=== PATIENT | male | born 1995 | race Caucasian/White ===

== ENCOUNTER 2017-12-10 22:48 | Emergency (ER) | payer OTHER, SELFPAY ==
--- NOTE | 2017-12-11 00:32 | ER ---
Nurse's Notes [facility] Name: Livan Campa Age: 22 yrs Sex: Male : 1995 Arrival Date: 12/10/2017 Time: 22:53 Bed 11 Private MD: Diagnosis: Laceration without foreign body of right index finger without damage to nail Presentation: 12/10 23:22 Presenting complaint: Patient states: I CUT MY FINGER WHILE I WAS SCALING FISH. bp Transition of care: patient was not received from another setting of care. Onset of symptoms was December 09, 2017 at 21:00. Risk Assessment: Do you want to hurt yourself or someone else? Patient reports no desire to harm self or others. Initial Sepsis Screen: Does the patient meet any 2 criteria? No. Patient's initial sepsis screen is negative. Does the patient have a suspected source of infection? No. Patient's initial sepsis screen is negative. Note NO ACTIVE BLEEDING, INJURY >24 HR OLD. Care prior to arrival: None. 23:22 Method Of Arrival: Ambulatory bp 23:22 Acuity: OTIS 4 bp Triage Assessment: 23:24 General: Appears in no apparent distress. comfortable, Behavior is calm, cooperative, bp appropriate for age. Pain: Denies pain. Musculoskeletal: Circulation, motion, and sensation intact. Range of motion: intact in all extremities. Injury Description: Laceration sustained to palmar aspect of proxima; phalanx of right index finger is 0.5 to 2.5 cm long, not bleeding, was sustained 1 day ago. Historical: - Allergies: 23:24 No Known Allergies; bp - Home Meds: 23:24 None [Active]; bp - PMHx: 23:24 None; bp - Immunization history:: Adult Immunizations up to date, Last tetanus immunization: unknown. - Social history:: Smoking status: Patient/guardian denies using tobacco, Patient uses alcohol, occasionally. - Ebola Screening: : Patient negative for fever greater than or equal to 101.5 degrees Fahrenheit, and additional compatible Ebola Virus Disease symptoms Patient denies exposure to infectious person Patient denies travel to an Ebola-affected area in the 21 days before illness onset No symptoms or risks identified at this time. Screenin/01 00:03 Abuse screen: Denies threats or abuse. Denies injuries from another. Nutritional bp screening: No deficits noted. Tuberculosis screening: No symptoms or risk factors identified. Fall Risk None identified. Assessment: 00:02 Reassessment: NO ACTIVE BLEEDING. APPROXIMATELY 2CM LAC NOTED TO PALMAR SURFACE OF bp RIGHT 2ND FINGER. INJURY OCCURRED >24HR AGO. 00:56 Reassessment: PT D/C HOME AMBULATORY WITH FAMILY, DX WITH FINGER LACERATION WITHOUT bp FOREIGN BODY. Vital Signs: 12/10 23:24 BP 100 / 52; Pulse 65; Resp 14; Temp 98.4; Pulse Ox 100% ; Weight 86.18 kg; Height 5 bp ft. 10 in. (177.80 cm); 23:24 Body Mass Index 27.26 (86.18 kg, 177.80 cm) bp ED Course: 22:53 Patient arrived in ED. al2 23:24 Triage completed. bp 23:24 Arm band placed on. bp 23:35 Josseline Arguello NP is PHCP. rh1 23:35 Slim Latif MD is Attending Physician. rh1 23:51 Good Rodriguez, JESSY is Primary Nurse. bp 12/11 00:03 Patient has correct armband on for positive identification. Bed in low position. Call bp light in reach. Adult w/ patient. 00:54 No provider procedures requiring assistance completed. intact. 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 Exp: bp 02/10/2020. Lot #: [id number]. } Route: IM; Site: right deltoid; 00:46 Follow up: Response: Medication administered at discharge. bp 00:46 Drug: Doxycycline 100 mg Route: PO; bp 00:47 Follow up: Response: Medication administered at discharge. bp Outcome: 00:31 Discharge ordered by . rh1 00:54 Discharged to home ambulatory, with family. bp 00:54 Condition: stable 00:54 Discharge instructions given to patient, Instructed on discharge instructions, follow up and referral plans. medication usage, wound care, Demonstrated understanding of instructions, follow-up care, medications, wound care, Prescriptions given X 1. 00:58 Patient left the ED. bp Signatures: Josseline Arguello NP DREDGE ENGINEER rh1 Good Rodriguez, RN RN Nettie Rowland Corrections: (The following items were deleted from the chart) 00:02 00:01 Reassessment: bp bp
--- NOTE | 2017-12-11 00:32 | EDPHYS ---
Physician Documentation [facility] Name: Livan Campa Age: 22 yrs Sex: Male : 1995 Arrival Date: 12/10/2017 Time: 22:53 Bed 11 Private MD: ED Physician Slim Latif HPI: 12/10 23:53 This 22 yrs old Male presents to ER via Ambulatory with complaints of Finger rh1 Injury. 23:53 The patient or guardian reports a laceration, dirty, clean, 1.5 cm(s). The complaints rh1 affect the palmar aspect of middle phalanx of right index finger and palmar aspect of proxima; phalanx of right index finger. Context: [place]. Onset: The symptoms/episode began/occurred yesterday. Modifying factors: The symptoms are alleviated by nothing, the symptoms are aggravated by movement. Associated signs and symptoms: Pertinent negatives: cyanosis distally, decreased sensation distally, numbness distally, tingling distally. Severity of symptoms: At their worst the symptoms were moderate, in the emergency department the symptoms are unchanged. The patient has not experienced similar symptoms in the past. The patient has not recently seen a physician. Pt. reports he was cleaning a fish yesterday and hand slipped, cutting right palmar index finger. He has no pain at site, denies any continued bleeding, no paresthesias.. Historical: - Allergies: 23:24 No Known Allergies; bp - Home Meds: 23:24 None [Active]; bp - PMHx: 23:24 None; bp - Immunization history:: Adult Immunizations up to date, Last tetanus immunization: unknown. - Social history:: Smoking status: Patient/guardian denies using tobacco, Patient uses alcohol, occasionally. - Ebola Screening: : Patient negative for fever greater than or equal to 101.5 degrees Fahrenheit, and additional compatible Ebola Virus Disease symptoms Patient denies exposure to infectious person Patient denies travel to an Ebola-affected area in the 21 days before illness onset No symptoms or risks identified at this time. ROS: 23:53 Constitutional: Negative for fever rh1 23:53 MS/extremity: Positive for laceration, swelling, Negative for decreased range of motion, paresthesias. 23:53 Skin: Positive for laceration(s). 23:53 Neuro: Negative for numbness, tingling. 23:53 All other systems are negative. Exam: 23:53 Constitutional: This is a well developed, well nourished patient who is awake, alert, rh1 and in no acute distress. Head/Face: Normocephalic, atraumatic. Cardiovascular: Regular rate and rhythm with a normal S1 and S2. No gallops, murmurs, or rubs. No JVD. No pulse deficits. Respiratory: Lungs have equal breath sounds bilaterally, clear to auscultation. No rales, rhonchi or wheezes noted. No increased work of breathing. Abdomen/GI: Soft, non-tender, with normal bowel sounds. No distension. No guarding or rebound. No evidence of tenderness throughout. 23:53 Musculoskeletal/extremity: Extremities: grossly normal except: noted in the palmar aspect of middle phalanx of right index finger: laceration, swelling, There is no evidence of decreased ROM, deformity, pain, ROM: full active range of motion, in the right hand, left hand, right arm and left arm, full passive range of motion, in the right hand, left hand, right arm and left arm, full flexion of right index finger intact, 5/5 against resistence, Pulses: noted to be 2+ in the right radial artery and left radial artery, Perfusion: the extremity is pink, warm, with brisk capillary refill, right index finger, Sensation intact. 23:53 Skin: injury, laceration(s), the wound is approximately 1.5 cm(s), with a depth of .5 cm(s), of the palmar aspect of middle phalanx of right index finger, that can be described as contaminated, linear, without bleeding. 23:53 Neuro: Orientation: is normal, to person, place \T\ time. Mentation: is normal, lucid, able to follow commands, Motor: is normal, moves all fours, strength is 5/5 in all extremities, Sensation: is normal, numbness, is not appreciated, tingling, is not appreciated, Gait: is steady, at a normal pace, without difficulty. Vital Signs: 23:24 BP 100 / 52; Pulse 65; Resp 14; Temp 98.4; Pulse Ox 100% ; Weight 86.18 kg; Height 5 bp ft. 10 in. (177.80 cm); 23:24 Body Mass Index 27.26 (86.18 kg, 177.80 cm) bp MDM: 23:53 Patient medically screened. [facility] 12/11 00:30 Data reviewed: vital signs, nurses notes, and as a result, I will discharge patient. rh1 Data interpreted: Pulse oximetry: on room air is 100 %. Interpretation: normal. Counseling: I had a detailed discussion with the patient and/or guardian regarding: the historical points, exam findings, and any diagnostic results supporting the discharge/admit diagnosis, the need for outpatient follow up, a family practitioner, to return to the emergency department if symptoms worsen or persist or if there are any questions or concerns that arise at home. Special discussion: I discussed in detail with the patient the higher chance of wound infection based on his presenting history. we discussed importance of keeping wound clean while it heals, and monitor closely for signs of infection. 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 Exp: 02/10/2020. Lot #: [id number]. } Route: IM; Site: right deltoid; 00:46 Follow up: Response: Medication administered at discharge. bp 00:46 Drug: Doxycycline 100 mg Route: PO; bp 00:47 Follow up: Response: Medication administered at discharge. bp Disposition: 12/11/17 00:31 Discharged to Home. Impression: Laceration without foreign body of right index finger without damage to nail. - Condition is Stable. - Discharge Instructions: Delayed Wound Closure, Laceration Care, Adult. - Prescriptions for Doxycycline Hyclate 100 mg Oral Tablet - take 1 tablet by ORAL route once daily; 10 tablet. - Medication Reconciliation Form, Thank You Letter, Antibiotic Education, Prescription Opioid Use form. - Follow up: Private Physician; When: 1 - 2 days; Reason: Recheck today's complaints, Continuance of care, Re-evaluation by your physician. Follow up: Emergency Department; When: As needed; Reason: Fever > 102 F, If symptoms return, Trouble breathing, Worsening of condition. - Problem is new. - Symptoms have improved. Addendum: 12/12/2017 08:49 Co-signature as Attending Physician, Slim Latif MD I agree with the assessment and c bazzi plan of care. Signatures: Slim Latif MD MD cha Jones, Rachel CLINICAL CODER CLINICAL CODER rh1 Good Rodriguez, RN RN bp Corrections: (The following items were deleted from the chart) 12/11 00:58 00:31 12/11/2017 00:31 Discharged to Home. Impression: Laceration without foreign body bp of right index finger without damage to nail. Condition is Stable. Forms are Medication Reconciliation Form, Thank You Letter, Antibiotic Education, Prescription Opioid Use. Follow up: Private Physician; When: 1 - 2 days; Reason: Recheck today's complaints, Continuance of care, Re-evaluation by your physician. Follow up: Emergency Department; When: As needed; Reason: Fever > 102 F, If symptoms return, Trouble breathing, Worsening of condition. Problem is new. Symptoms have improved. rh1
[2017-12-11] MEDS ORDERED: DOXYCYCLINE 100 MG CAP PO ONE (00:39)
[2017-12-11] MEDS ORDERED: TETANUS & DIPHTHERIA TOX,ADULT 0.5 ML VIAL ONE (00:39)
== END 2017-12-11 00:58 | disposition home or self-care (01) ==
LOC: ER 22:48
DX: S61.210A Laceration without foreign body of right index finger without damage to nail, initial encounter (principal); W26.0XXA Contact with knife, initial encounter; Y93.89 Activity, other specified; Y92.9 Unspecified place or not applicable; Z23 Encounter for immunization
CPT/HCPCS: 90714; 99283